=== PATIENT | female | born 1970 | race African-American/Black ===

== ENCOUNTER → 2025-03-30 08:33 | Outpatient (REF) | payer BC, SELFPAY ==
[2025-03-30 09:12] LABS: % Basophils 0.6 % (0-2); % Eosinophils 1.9 % (0-6); % Immature Granulocytes 0.4 % (0-0.5); % Lymphocytes 28.8 % (20.5-51.1); % Monocytes 13.7 % (1.7-9.3); % Neutrophils 54.6 % (42.2-75.2); Absolute Eosinophils 0.1 10^3/uL (0-0.7); Absolute Lymphocytes 1.3 10^3/uL (1.2-3.4); Absolute Monocytes 0.6 10^3/uL (0.1-0.6); Absolute Neutrophils 2.5 10^3/uL (1.4-6.5); Hematocrit 38.6 % (37.0-47.0); Hemoglobin 13.3 g/dL (12.0-16.0); Mean Corp Hgb Conc. 34.5 g/dL (33.0-37.0); Mean Corpuscular Hgb 32.5 pg (27.0-31.0); Mean Corpuscular Volume 94.4 fL (81.0-99.0); Mean Platelet Volume 9.5 fL (7.4-10.4); Nucleated Red Blood Cells % 0 %; Platelet Count 209 10^3/uL (130-400); Red Blood Cell Count 4.09 10^6/uL (4.20-5.40); Red Cell Dist. Width 12.6 % (11.5-14.5); White Blood Cell Count 4.7 10^3/uL (4.8-10.8)
[2025-03-30 13:57] LABS: ALT (SGPT) 17 U/L (0-35); AST (SGOT) 23 U/L (14-36); Albumin 4.3 g/dl (3.5-5.0); Alkaline Phosphatase 44 U/L (38-126); Blood Urea Nitrogen 14 mg/dl (7-17); Carbon Dioxide 24 mmol/L (22-30); Chloride 105 mmol/L (98-107); Glucose 91 mg/dl (70-99); HDL Cholesterol 82 mg/dl; LDL Cholesterol, Calculated 89 mg/dl; Potassium 4.6 mmol/L (3.5-5.1); Sodium 137 mmol/L (135-145); Total Bilirubin 0.7 mg/dl (0.2-1.3); Total Cholesterol 181 mg/dl (50-199); Total Protein 7.2 g/dl (6.3-8.2); Triglyceride 54 mg/dl (10-149); Very Low Density Lipoprotein 10 mg/dl (0-30); eGFR > 60.00
== END ==
LOC: REG 08:33
PROVIDERS: ATTENDING PHYSICIAN Hospitalist
DX: Z00.00 Encounter for general adult medical examination without abnormal findings (principal); Z13.220 Encounter for screening for lipoid disorders
CPT/HCPCS: 36415; 80053; 80061; 85025

== ENCOUNTER → 2025-04-26 13:46 | Outpatient (REF) | payer BC, SELFPAY | LOC: RAD 13:46 | PROVIDERS: ATTENDING PHYSICIAN Hospitalist | DX: M25.571 Pain in right ankle and joints of right foot (principal) | CPT/HCPCS: 73600 ==